=== PATIENT | male | born 1990 | race Caucasian/White ===

== ENCOUNTER 2024-07-24 09:55 | Emergency (ER) | payer BC, SELFPAY ==
--- NOTE | 2024-07-24 10:57 | ED.GENMED ---
History of Present Illness
General
Chief Complaint: Musculo-Skeletal Complaint
Source: patient
Time Seen by Provider: 07/24/24 10:49
History of Present Illness
History of Present Illness:
34-year-old male presents to the emergency room, complaining of neck pain. Patient began experiencing pain in the left side of his neck about 4 or 5 days ago. It seemed to begin after he woke up in the morning. He feels that his neck is stiff and
he has difficulty moving it. Pain is located in the left side and radiates down to his left arm. No numbness or tingling. No known injury. 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 He is right-hand dominant.
Phy Exam
Physical Exam
Physical Exam:
General: Awake, Alert, Oriented X3. No acute distress.
Vitals: unremarkable
Head: Atraumatic
Eyes: Pupils equal, EOMI
Throat: Airway intact, no exudates
Neck: Trachea midline, tenderness palpation along the left paraspinal musculature
Lungs: Clear and equal b/l
Heart: Regular rate, no murmurs
Abd: Soft, Nontender, No pulsatile mass
Neuro: Cranial nerves intact, muscle strength equal bilaterally, sensation equal bilaterally
Skin: Warm, dry, no rash
Extremities: pulses equal b/l, no edema
Course
Orders/Labs/Results
Orders:
Orders
07/24/24 10:56
Diazepam [Valium] 5 mg PO NOW STA
Ketorolac [Toradol] 30 mg IM NOW STA
CR Cervical Spine 4 Or 5 Vw Urgent
Comment:
Reason For Exam: neck pain, stiffness
07/24/24 12:31
Cyclobenzaprine HCl [Flexeril] 10 mg PO NOW STA
Vital Signs
Initial and Last Documented VS:
Initial Vital Signs
Temp Pulse Resp BP Pulse Ox
97.7 F 87 18 141/104 99
07/24/24 09:57 07/24/24 09:57 07/24/24 09:57 07/24/24 09:57 07/24/24 09:57
Last Documented Vital Signs
Temp Pulse Resp BP Pulse Ox
98.3 F 92 18 128/92 98
07/24/24 12:53 07/24/24 12:53 07/24/24 12:53 07/24/24 12:53 07/24/24 12:53
MDM/Problems Addressed
Differential Diagnosis Includes:
Muscle spasm, cervical radiculopathy
MDM/Problems Addressed:
Complaints and show no acute abnormality. Patient relief with Toradol and Valium. Overall my physical exam is suggestive of muscle spasm causing the discomfort. I do not think this is radicular in nature but should patient not get better over the
course of the next week an MRI might be reasonable. Patient given follow-up information for Dr. George. Will send a prescription for Flexeril. Recommend he stay home from work for couple days to rest
*Radiology
Radiology exam reviewed: radiology read reviewed
*Pulse Oximetry
Patient hypoxic: no
*Critical Care Note
Total Time (30-74mins, 75-104mins- exclusive of procedures): Not Applicable
ED Attending Note
-
Portions of this chart may have been created with voice recognition software.� Occasional wrong word or��sound alike� substitutions may have occurred due to the inherent limitations of voice recognition software.
Discharge Plan
Departure
Patient Disposition: Home (Routine Discharge)
Date of Disposition: 07/24/24
Time of Disposition: 12:31
Patient with high blood pressure during this ER visit?: No
Condition: Good
Discharge Problem:
Cervical strain, acute
Instructions: Neck pain - ED discharge instructions
Prescriptions:
New
cyclobenzaprine 10 mg tablet
10 mg PO TID PRN (Reason: neck pain/spasm) Qty: 20 0RF
Referrals:
Osmani George MD [Active, Anesthesiology]
Tan Ordaz III, MD [Family Provider, Internal Medicine]
Stand Alone Forms: Return to Work
Interventions
Interventions:
*Risk Screen - Suicide Last Done: 07/24/24 09:57
*General Assessment Last Done: 07/24/24 09:57
*Neglect/Abuse Screening Last Done: 07/24/24 11:22
*ED- Fall Risk Assessment Last Done: 07/24/24 11:22
*ED COVID-19 Vaccine History Last Done: 07/24/24 11:22
*Nursing Disposition Last Done: 07/24/24 12:53
ED-Musculoskeletal Assessment Last Done: 07/24/24 11:22
Discharge Date and Time
Discharge Date/Time: 07/24/24 12:50
Print Language: PORTUGUESE
[2024-07-24] MEDS: TORADOL 30 MG IM (11:32)
[2024-07-24] MEDS: VALIUM 5 MG PO (11:32)
[2024-07-24] MEDS: FLEXERIL 10 MG PO (12:38)
--- NOTE | 2024-07-24 12:49 | EDRN ---
Reviewed discharge instructions with patient. Verbalized understanding. Ambulated with steady gait to the lobby.
== END 2024-07-24 12:50 | disposition home or self-care (01) ==
LOC: EMR 09:55
PROVIDERS: EMERGENCY PHYSICIAN Emergency Medicine; FAMILY PHYSICIAN Student in an Organized Health Care Education/Training Program
DX: S16.1XXA Strain of muscle, fascia and tendon at neck level, initial encounter (principal); X58.XXXA Exposure to other specified factors, initial encounter
CPT/HCPCS: 96372; 99284; 72050